=== PATIENT | male | born 1990 | race Caucasian/White ===

== ENCOUNTER 2016-06-04 18:49 | Emergency (ER) | payer OTHER ==
[2016-06-04] MEDS ORDERED: ACETAMINOPH W/CODEINE #3 TAB UD As Ordered ONE (20:08)
[2016-06-04] MEDS ORDERED: METHOCARBAMOL 500 MG TAB As Ordered ONE (20:08)
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
--- NOTE | 2016-06-04 21:10 | REPUSA ---
CLINICAL HISTORY: Neck pain. Trauma. TECHNIQUE: Multiple axial images were obtained through the cervical spine. Images were also reconstru cted in coronal and sagittal planes. The study was performed without IV contrast. COMMENTS: There is no fracture or spondylolisthesis visualized. The paraspinal soft tissues are unremarkable. T here are no lytic or blastic lesions. Straightening of cervical lordosis is seen, suggesting muscular spasm. There is evidence of minimal m ultilevel disk disease, demonstrated by minimal osteophytosis and endplate sclerosis. No significant disk herniation is noted at any level. Canal and foramina remain patent. IMPRESSION: 1. No fracture or spondylolisthesis. 2. Straightening of cervical lordosis is seen, suggesting muscular spasm. 3. Minimal multilevel spondylosis. Thank you for your kind referral of this patient.
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
--- NOTE | 2016-06-04 21:51 | EDDOCDS ---
Physician Documentation [facility] Name: Leroy Rey Age: 25 yrs Sex: Male : 1990 Arrival Date: 06/04/2016 Time: 18:49 Bed PD Private MD: Disposition: 06/04/16 21:35 Discharged to Home/Self Care. Impression: Unspecified injury of head, Cervicalgia, Low back pain, Contusion of knee - BILATERAL. - Condition is Stable. - Discharge Instructions: Back Pain, Adult, Contusion, Head Injury, Adult, Cervical Sprain. - Prescriptions for Tylenol- Codeine #3 300-30 mg Oral Tablet - take 2 tablets by ORAL route every 6 hours As needed MDD: 4 tabs; 20 tablet. Robaxin- 750 750 mg Oral Tablet - take 1 tablet by ORAL route every 6 hours As needed; 40 tablet. Ibuprofen 400 mg Oral Tablet - take 1 tablet by ORAL route every 6 hours As needed take with food; 30 tablet. - Medication Reconciliation, Local Pharmacy Hours, Work Release Form - 2 day form. - Follow up: Private Physician; When: 1 - 2 days; Reason: Recheck today's complaints, Continuance of care. - Problem is new. - Symptoms have improved. - Notes: USE MEDICATIONS INSTRUCTED, FOLLOW UP WITH YOUR DOCTOR IN 2 DAYS, RETURN TO THE ER IF THE SYMPTOMS WORSEN OR BECOME CONCERNING Historical: - Allergies: no known allergies; - Home Meds: 1. none - PMHx: none; - PSHx: none; - Social history: Smoking status: Patient states was never smoker of tobacco. No barriers to communication noted, The patient speaks fluent Telugu. - Family history: Not pertinent. - : The pt / caregiver states he / she is not on anticoagulants. Home medication list is obtained from the patient. - Exposure Risk Screening:: None identified. Vital Signs: 06/04 18:50 BP 114 / 60 RA Sitting (auto/reg); Pulse 73; Resp 18; Temp 96.9; Pulse Ox 100% on R/A; bnb Weight 58.97 kg / 130.01 lbs; Height 5 ft. 5 in. (165.10 cm); Pain 8/10; 21:27 BP 129 / 62; Pulse 58; Resp 18; Temp 98.5(TE); Pulse Ox 99% on R/A; Pain 8/10; ar3 18:50 Body Mass Index 21.63 (58.97 kg, 165.10 cm) bnb MDM: 20:04 Apply Yana Collar to Patient. ordered. ck7 20:04 Acetaminophen-Codeine 300 mg-30 mg 2 tabs PO once ordered. ck7 20:04 Methocarbamol 1 grams PO once ordered. ck7 20:05 CT Head Without Contrast Ordered. EDMS 20:06 CT Spine,Cervical W/o Contrast Ordered. EDMS 20:06 Spine. Lumbosacral, Complete Ordered. EDMS 20:06 Knee, Complete Ordered. EDMS 20:16 [facility] [place] [facility] Payment Agreement was scanned into [employer] and attached to record. jp5 20:18 [facility] [place] was scanned into [employer] and attached to record. jp5 20:18 Financial registration complete. jp5 Administered Medications: 21:49 Drug: Acetaminophen-Codeine 2 tabs [acetaminophen 300 mg-codeine 30 mg tablet (2 tabs)] ttb {Note: meds dispensed home. [employer] witness. OK with PA.} Route: PO; 21:49 Drug: Methocarbamol 1 grams [methocarbamol 500 mg tablet (2 tabs)] {Note: meds ttb dispensed.} Route: PO; Signatures: Dispatcher [employer] Olya Segal,RN RN rs3 Wally Johnston, RPA-C RPA-Cck7 Stephanie Lockhart RN RN ttb Suki Wei jp5 The chart was reviewed and I authenticate all verbal orders and agree with the evaluation and treatment provided.Attachments: 20:16 [facility] [place] Payment Agreement jp5 MTDD
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
--- NOTE | 2016-06-05 08:00 | REP ---
Clinical: Lower back pain . Technique: AP, lateral, bilateral oblique, and coned-down views. Findings: Alignment and lordosis is maintained. The vertebral bodies including transverse process and spinous processes are intact and normal. There is no evidence for acute fracture / compression injury or subluxation. No evidence for spondylolysis or spondylolisthesis. No significant degenerative change is noted. Impression: Normal lumbosacral spine radiograph series. Signed by Harlan Fregoso MD 06/05/2016 07:51 A
--- NOTE | 2016-06-06 22:51 | EDDOCDS ---
Physician Documentation [facility] Name: Leroy Rey Age: 25 yrs Sex: Male : 1990 Arrival Date: 06/04/2016 Time: 18:49 Bed PD Private MD: Disposition: 06/04/16 21:35 Discharged to Home/Self Care. Impression: Unspecified injury of head, Cervicalgia, Low back pain, Contusion of knee - BILATERAL. - Condition is Stable. - Discharge Instructions: Back Pain, Adult, Contusion, Head Injury, Adult, Cervical Sprain. - Prescriptions for Tylenol- Codeine #3 300-30 mg Oral Tablet - take 2 tablets by ORAL route every 6 hours As needed MDD: 4 tabs; 20 tablet. Robaxin- 750 750 mg Oral Tablet - take 1 tablet by ORAL route every 6 hours As needed; 40 tablet. Ibuprofen 400 mg Oral Tablet - take 1 tablet by ORAL route every 6 hours As needed take with food; 30 tablet. - Medication Reconciliation, Local Pharmacy Hours, Work Release Form - 2 day form. - Follow up: Private Physician; When: 1 - 2 days; Reason: Recheck today's complaints, Continuance of care. - Problem is new. - Symptoms have improved. - Notes: USE MEDICATIONS INSTRUCTED, FOLLOW UP WITH YOUR DOCTOR IN 2 DAYS, RETURN TO THE ER IF THE SYMPTOMS WORSEN OR BECOME CONCERNING Historical: - Allergies: no known allergies; - Home Meds: 1. none - PMHx: none; - PSHx: none; - Social history: Smoking status: Patient states was never smoker of tobacco. No barriers to communication noted, The patient speaks fluent Greek. - Family history: Not pertinent. - : The pt / caregiver states he / she is not on anticoagulants. Home medication list is obtained from the patient. - Exposure Risk Screening:: None identified. Vital Signs: 06/04 18:50 BP 114 / 60 RA Sitting (auto/reg); Pulse 73; Resp 18; Temp 96.9; Pulse Ox 100% on R/A; bnb Weight 58.97 kg / 130.01 lbs; Height 5 ft. 5 in. (165.10 cm); Pain 8/10; 21:27 BP 129 / 62; Pulse 58; Resp 18; Temp 98.5(TE); Pulse Ox 99% on R/A; Pain 8/10; ar3 18:50 Body Mass Index 21.63 (58.97 kg, 165.10 cm) bnb MDM: 20:04 Apply Yana Collar to Patient. ordered. ck7 20:04 Acetaminophen-Codeine 300 mg-30 mg 2 tabs PO once ordered. ck7 20:04 Methocarbamol 1 grams PO once ordered. ck7 20:05 CT Head Without Contrast Ordered. EDMS 20:06 CT Spine,Cervical W/o Contrast Ordered. EDMS 20:06 Spine. Lumbosacral, Complete Ordered. EDMS 20:06 Knee, Complete Ordered. EDMS 20:16 [facility] Payment Agreement was scanned into [employer] and attached to record. jp5 : [facility] was scanned into [employer] and attached to record. jp5 : Financial registration complete. jp5 06/05 12:08 T-Sheet-- Draft Copy was scanned into [employer] and attached to record. gb Administered Medications: 06/04 21:49 Drug: Acetaminophen-Codeine 2 tabs [acetaminophen 300 mg-codeine 30 mg tablet (2 tabs)] ttb {Note: meds dispensed home. [employer] witness. OK with PA.} Route: PO; 21:49 Drug: Methocarbamol 1 grams [methocarbamol 500 mg tablet (2 tabs)] {Note: meds ttb dispensed.} Route: PO; Signatures: Dispatcher [employer] EDME Opal Winters, Reg Reg gb Olya Rosenthal RN RN rs3 Wally Johnston, CHERYLE-C RPA-Cck7 Stephanie Lockhart RN RN ttb Suki Wei jp5 The chart was reviewed and I authenticate all verbal orders and agree with the evaluation and treatment provided.Attachments: 20:16 [facility] Payment Agreement jp5 06/05 12:08 T-Sheet-- Draft Copy gb Chart Complete MTDD
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
--- NOTE | 2016-06-06 22:51 | EDDOCDS ---
Physician Documentation [facility] Name: Leroy Rey Age: 25 yrs Sex: Male : 1990 Arrival Date: 06/04/2016 Time: 18:49 Bed PD Private MD: Disposition: 06/04/16 21:35 Discharged to Home/Self Care. Impression: Unspecified injury of head, Cervicalgia, Low back pain, Contusion of knee - BILATERAL. - Condition is Stable. - Discharge Instructions: Back Pain, Adult, Contusion, Head Injury, Adult, Cervical Sprain. - Prescriptions for Tylenol- Codeine #3 300-30 mg Oral Tablet - take 2 tablets by ORAL route every 6 hours As needed MDD: 4 tabs; 20 tablet. Robaxin- 750 750 mg Oral Tablet - take 1 tablet by ORAL route every 6 hours As needed; 40 tablet. Ibuprofen 400 mg Oral Tablet - take 1 tablet by ORAL route every 6 hours As needed take with food; 30 tablet. - Medication Reconciliation, Local Pharmacy Hours, Work Release Form - 2 day form. - Follow up: Private Physician; When: 1 - 2 days; Reason: Recheck today's complaints, Continuance of care. - Problem is new. - Symptoms have improved. - Notes: USE MEDICATIONS INSTRUCTED, FOLLOW UP WITH YOUR DOCTOR IN 2 DAYS, RETURN TO THE ER IF THE SYMPTOMS WORSEN OR BECOME CONCERNING Historical: - Allergies: no known allergies; - Home Meds: 1. none - PMHx: none; - PSHx: none; - Social history: Smoking status: Patient states was never smoker of tobacco. No barriers to communication noted, The patient speaks fluent Serbian. - Family history: Not pertinent. - : The pt / caregiver states he / she is not on anticoagulants. Home medication list is obtained from the patient. - Exposure Risk Screening:: None identified. Vital Signs: 06/04 18:50 BP 114 / 60 RA Sitting (auto/reg); Pulse 73; Resp 18; Temp 96.9; Pulse Ox 100% on R/A; bnb Weight 58.97 kg / 130.01 lbs; Height 5 ft. 5 in. (165.10 cm); Pain 8/10; 21:27 BP 129 / 62; Pulse 58; Resp 18; Temp 98.5(TE); Pulse Ox 99% on R/A; Pain 8/10; ar3 18:50 Body Mass Index 21.63 (58.97 kg, 165.10 cm) bnb MDM: 20:04 Apply Yana Collar to Patient. ordered. ck7 20:04 Acetaminophen-Codeine 300 mg-30 mg 2 tabs PO once ordered. ck7 20:04 Methocarbamol 1 grams PO once ordered. ck7 20:05 CT Head Without Contrast Ordered. EDMS 20:06 CT Spine,Cervical W/o Contrast Ordered. EDMS 20:06 Spine. Lumbosacral, Complete Ordered. EDMS 20:06 Knee, Complete Ordered. EDMS 20:16 [facility] Payment Agreement was scanned into [employer] and attached to record. jp5 : [facility] was scanned into [employer] and attached to record. jp5 : Financial registration complete. jp5 06/05 12:08 T-Sheet-- Draft Copy was scanned into [employer] and attached to record. gb Administered Medications: 06/04 21:49 Drug: Acetaminophen-Codeine 2 tabs [acetaminophen 300 mg-codeine 30 mg tablet (2 tabs)] ttb {Note: meds dispensed home. [employer] witness. OK with PA.} Route: PO; 21:49 Drug: Methocarbamol 1 grams [methocarbamol 500 mg tablet (2 tabs)] {Note: meds ttb dispensed.} Route: PO; Signatures: Dispatcher [employer] EDWI Opal Winters, Reg Reg gb Olya Rosenthal RN RN rs3 Wally Johnston, CHERYLE-C RPA-Cck7 Stephanie Lockhart RN RN ttb Suki Wei jp5 The chart was reviewed and I authenticate all verbal orders and agree with the evaluation and treatment provided.Attachments: 20:16 [facility] Payment Agreement jp5 06/05 12:08 T-Sheet-- Draft Copy gb Chart Complete MTDD
== END 2016-06-04 21:50 | disposition home or self-care (01) ==
LOC: M ED 18:49
DX: S80.01XA Contusion of right knee, initial encounter (principal); S80.12XA Contusion of left lower leg, initial encounter; S09.90XA Unspecified injury of head, initial encounter; M54.2 Cervicalgia; M54.5 Low back pain; V47.5XXA Car driver injured in collision with fixed or stationary object in traffic accident, initial encounter; Y92.410 Unspecified street and highway as the place of occurrence of the external cause; Y93.89 Activity, other specified; Y99.8 Other external cause status

== ENCOUNTER 2016-06-07 11:41 | Emergency (ER) | payer OTHER ==
--- NOTE | 2016-06-07 12:55 | EDDOCDS ---
Nurse's Notes [facility] Name: Leroy Rey Age: 26 yrs Sex: Male : 1990 Arrival Date: 06/07/2016 Time: 11:41 Bed Triage 3 Private MD: NO PRIMARY PHYSICIAN, . Diagnosis: Encounter for screening for infections with a predominantly sexual mode of transmission Presentation: 06/07 11:47 Presenting complaint: Patient states: that he may have and STD. Pt states that he ms18 thinks the exposed approx 2-3 weeks ago. Pt reports soreness to his penis and a little burning during urination. Pt denies penile discharge. Adult Sepsis Screening: The patient does not have new or worsening altered mentation. Patient's respiratory rate is less than 22. Systolic blood pressure is greater than 100. Patient has a qSOFA score of 0- Negative Sepsis Screen. Suicide/Homicide risk assessment- the patient denies having any suicidal and/or homicidal ideations and does not present with any other emotional, behavioral or mental health complaints. 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 Transition of care: patient was not received from another setting of care. 11:47 Acuity: BALTAZAR Level 4 ms18 11:47 Method Of Arrival: Walkin/Carried/Asstd ms18 Triage Assessment: 11:49 General: Appears in no apparent distress, comfortable, Behavior is appropriate for age, ms18 cooperative. Pain: Location: pelvis Pain currently is 2 out of 10 on a pain scale. HIV screening NA for this visit Offered previously. Neurological: No deficits noted. Respiratory: No deficits noted. : Reports burning with urination. Derm: Skin is pink, warm & dry. Historical: - Allergies: no known allergies; - Home Meds: 1. none - PMHx: none; - PSHx: none; - Social history: Smoking status: Patient states was never smoker of tobacco. No barriers to communication noted, The patient speaks fluent Serbian. - Family history: Not pertinent. - : The pt / caregiver states he / she is not on anticoagulants. Home medication list is obtained from the patient. - Exposure Risk Screening:: None identified. Screenin:53 Screening information is obtained from the patient. Fall risk: No risks identified. mlb1 Assistance ADL's: requires no assistance with activities of daily living. Abuse/DV Screen: The patient / caregiver reports he/she is: not in a situation that causes fear, pain or injury. Nutritional screening: No deficits noted. Advance Directives: Currently, there is no health care proxy. home support is adequate. Assessment: 12:52 General: Appears in no apparent distress, comfortable, Behavior is appropriate for age, mlb1 cooperative. Pain: Denies pain. Respiratory: No deficits noted. : Urine is clear. Vital Signs: 11:44 BP 123 / 66; Pulse 84; Resp 18 S; Temp 96.3(O); Pulse Ox 98% on R/A; Weight 58.97 kg gr2 (R); Height 5 ft. 5 in. (165.10 cm) (R); Pain 5/10; 11:44 Body Mass Index 21.63 (58.97 kg, 165.10 cm) gr2 Vitals: 11:44 Log In Time: June 07, 2016 at 11:44. gr2 ED Course: 11:44 Patient visited by Jennifer Nieto. gr2 11:44 NO PRIMARY PHYSICIAN, . is Private Physician. gr2 11:44 Patient moved to Waiting gr2 11:46 Patient visited by Jennifer Nieto. gr2 11:46 Patient moved to Pre RCE gr2 11:49 Triage Initiated ms18 12:08 Patient moved to Triage 3 mb9 12:26 Lis[facility] Sor[facility]-C [facility]. cc10 12:27 Dheeraj Renee MD is Attending Physician. cc10 12:28 Patient visited by Lisandro Soriano PA-C. cc10 12:28 Patient visited by Lisandro Soriano PA-C. cc10 12:37 [facility] is Referral Physician. cc10 12:52 GC & Chlamydia Amplification Sent. mlb1 12:53 The patient / caregiver is instructed regarding the plan of care and ED course. mlb1 12:53 No IV's were initiated during this patient's visit. No procedures done that require mlb1 assistance. Order Results: There are currently no results for this order. Outcome: 12:37 Discharge ordered by Provider. cc10 12:53 Discharge Assessment: Patient awake, alert and oriented x 3. No cognitive and/or mlb1 functional deficits noted. Patient verbalized understanding of disposition instructions. patient administered narcotics - no. The following High Risk Discharge criteria are identified: None. Discharged to home ambulatory. Condition: good. Discharge instructions given to patient, Instructed on discharge instructions, follow up and referral plans. Demonstrated understanding of instructions, Pt was receptive of discharge instructions/ teaching. No special radiology studies were completed. Property sent home with patient. 12:53 Patient left the ED. mlb1 Signatures: Everette Crisostomo RN RN mlb1 Jennifer Nieto gr2 Lisandro Soriano PA-C PATayoC cc10 Daniela Santo,RN RN ms18 Everette BuenoRN RN mb9 MTDD
--- NOTE | 2016-06-07 12:55 | EDDOCDS ---
Physician Documentation [facility] Name: Leroy Rey Age: 26 yrs Sex: Male : 1990 Arrival Date: 06/07/2016 Time: 11:41 Bed Triage 3 Private MD: NO PRIMARY PHYSICIAN, . Disposition: 06/07/16 12:37 Discharged to Home/Self Care. Impression: Encounter for screening for infections with a predominantly sexual mode of transmission. - Condition is Stable. - Discharge Instructions: Sexually Transmitted Disease. - Medication Reconciliation form. - Follow up: Emergency Department; When: As needed. Follow up: [facility]; When: Call to arrange an appointment; Reason: Further diagnostic work-up. - Problem is an ongoing problem. - Symptoms are unchanged. Historical: - Allergies: no known allergies; - Home Meds: 1. none - PMHx: none; - PSHx: none; - Social history: Smoking status: Patient states was never smoker of tobacco. No barriers to communication noted, The patient speaks fluent Belarusian. - Family history: Not pertinent. - : The pt / caregiver states he / she is not on anticoagulants. Home medication list is obtained from the patient. - Exposure Risk Screening:: None identified. Vital Signs: 06/07 11:44 BP 123 / 66; Pulse 84; Resp 18 S; Temp 96.3(O); Pulse Ox 98% on R/A; Weight 58.97 kg / gr2 130.01 lbs (R); Height 5 ft. 5 in. (165.10 cm) (R); Pain 5/10; 11:44 Body Mass Index 21.63 (58.97 kg, 165.10 cm) gr2 MDM: 12:37 GC & Chlamydia Amplification Ordered. EDMS 12:45 Financial registration complete. mm15 Signatures: Dispatcher [employer] EDMS Everette Crisostomo RN RN mlb1 Amari Rogers mm15 Lisandro Soriano PA-C PA-C cc10 Daniela SantoRN RN ms18 MTDD
--- NOTE | 2016-06-09 13:55 | EDDOCDS ---
Physician Documentation [facility] Name: Leroy Rey Age: 26 yrs Sex: Male : 1990 Arrival Date: 06/07/2016 Time: 11:41 Bed Triage 3 Private MD: NO PRIMARY PHYSICIAN, . Disposition: 06/07/16 12:37 Discharged to Home/Self Care. Impression: Encounter for screening for infections with a predominantly sexual mode of transmission. - Condition is Stable. - Discharge Instructions: Sexually Transmitted Disease. - Medication Reconciliation form. - Follow up: Emergency Department; When: As needed. Follow up: [facility]; When: Call to arrange an appointment; Reason: Further diagnostic work-up. - Problem is an ongoing problem. - Symptoms are unchanged. Historical: - Allergies: no known allergies; - Home Meds: 1. none - PMHx: none; - PSHx: none; - Social history: Smoking status: Patient states was never smoker of tobacco. No barriers to communication noted, The patient speaks fluent Slovak. - Family history: Not pertinent. - : The pt / caregiver states he / she is not on anticoagulants. Home medication list is obtained from the patient. - Exposure Risk Screening:: None identified. Vital Signs: 06/07 11:44 BP 123 / 66; Pulse 84; Resp 18 S; Temp 96.3(O); Pulse Ox 98% on R/A; Weight 58.97 kg / gr2 130.01 lbs (R); Height 5 ft. 5 in. (165.10 cm) (R); Pain 5/10; 11:44 Body Mass Index 21.63 (58.97 kg, 165.10 cm) gr2 MDM: 12:37 GC & Chlamydia Amplification Ordered. EDMS 12:45 Financial registration complete. mm15 12:58 [facility] Payment Agreement was scanned into [employer] and attached to record. mm15 14:23 T-Sheet-- Draft Copy was scanned into [employer] and attached to record. pauliner Signatures: Dispatcher [employer] EDNH Everette Crisostomo RN RN mlb1 Amari Rogers mm15 Lisandro Soriano PATayoC PA-C cc10 Daniela Santo RN RN ms18 Chelsea Wise The chart was reviewed and I authenticate all verbal orders and agree with the evaluation and treatment provided.Attachments: 12:58 [facility] Payment Agreement mm15 14:23 T-Sheet-- Draft Copy klr Chart Complete MTDD
--- NOTE | 2016-06-09 13:55 | EDDOCDS ---
Physician Documentation [facility] Name: Leroy Rey Age: 26 yrs Sex: Male : 1990 Arrival Date: 06/07/2016 Time: 11:41 Bed Triage 3 Private MD: NO PRIMARY PHYSICIAN, . Disposition: 06/07/16 12:37 Discharged to Home/Self Care. Impression: Encounter for screening for infections with a predominantly sexual mode of transmission. - Condition is Stable. - Discharge Instructions: Sexually Transmitted Disease. - Medication Reconciliation form. - Follow up: Emergency Department; When: As needed. Follow up: [facility]; When: Call to arrange an appointment; Reason: Further diagnostic work-up. - Problem is an ongoing problem. - Symptoms are unchanged. Historical: - Allergies: no known allergies; - Home Meds: 1. none - PMHx: none; - PSHx: none; - Social history: Smoking status: Patient states was never smoker of tobacco. No barriers to communication noted, The patient speaks fluent Kazakh. - Family history: Not pertinent. - : The pt / caregiver states he / she is not on anticoagulants. Home medication list is obtained from the patient. - Exposure Risk Screening:: None identified. Vital Signs: 06/07 11:44 BP 123 / 66; Pulse 84; Resp 18 S; Temp 96.3(O); Pulse Ox 98% on R/A; Weight 58.97 kg / gr2 130.01 lbs (R); Height 5 ft. 5 in. (165.10 cm) (R); Pain 5/10; 11:44 Body Mass Index 21.63 (58.97 kg, 165.10 cm) gr2 MDM: 12:37 GC & Chlamydia Amplification Ordered. EDMS 12:45 Financial registration complete. mm15 12:58 [facility] Payment Agreement was scanned into [employer] and attached to record. mm15 14:23 T-Sheet-- Draft Copy was scanned into [employer] and attached to record. pauliner Signatures: Dispatcher [employer] EDPR Everette Crisostomo RN RN mlb1 Amari Rogers mm15 Lisandro Soriano PATayoC PA-C cc10 Daniela Santo RN RN ms18 Chelsea Wise The chart was reviewed and I authenticate all verbal orders and agree with the evaluation and treatment provided.Attachments: 12:58 [facility] Payment Agreement mm15 14:23 T-Sheet-- Draft Copy klr Chart Complete MTDD
--- NOTE | 2016-06-09 13:55 | EDDOCDS ---
Nurse's Notes [facility] Name: Leroy Rey Age: 26 yrs Sex: Male : 1990 Arrival Date: 06/07/2016 Time: 11:41 Bed Triage 3 Private MD: NO PRIMARY PHYSICIAN, . Diagnosis: Encounter for screening for infections with a predominantly sexual mode of transmission Presentation: 06/07 11:47 Presenting complaint: Patient states: that he may have and STD. Pt states that he ms18 thinks the exposed approx 2-3 weeks ago. Pt reports soreness to his penis and a little burning during urination. Pt denies penile discharge. Adult Sepsis Screening: The patient does not have new or worsening altered mentation. Patient's respiratory rate is less than 22. Systolic blood pressure is greater than 100. Patient has a qSOFA score of 0- Negative Sepsis Screen. Suicide/Homicide risk assessment- the patient denies having any suicidal and/or homicidal ideations and does not present with any other emotional, behavioral or mental health complaints. Status: Patient is not a environmental services coordinator or dependent. Transition of care: patient was not received from another setting of care. 11:47 Acuity: BALTAZAR Level 4 ms18 11:47 Method Of Arrival: Walkin/Carried/Asstd ms18 Triage Assessment: 11:49 General: Appears in no apparent distress, comfortable, Behavior is appropriate for age, ms18 cooperative. Pain: Location: pelvis Pain currently is 2 out of 10 on a pain scale. HIV screening NA for this visit Offered previously. Neurological: No deficits noted. Respiratory: No deficits noted. : Reports burning with urination. Derm: Skin is pink, warm & dry. Historical: - Allergies: no known allergies; - Home Meds: 1. none - PMHx: none; - PSHx: none; - Social history: Smoking status: Patient states was never smoker of tobacco. No barriers to communication noted, The patient speaks fluent Turkish. - Family history: Not pertinent. - : The pt / caregiver states he / she is not on anticoagulants. Home medication list is obtained from the patient. - Exposure Risk Screening:: None identified. Screenin:53 Screening information is obtained from the patient. Fall risk: No risks identified. mlb1 Assistance ADL's: requires no assistance with activities of daily living. Abuse/DV Screen: The patient / caregiver reports he/she is: not in a situation that causes fear, pain or injury. Nutritional screening: No deficits noted. Advance Directives: Currently, there is no health care proxy. home support is adequate. Assessment: 12:52 General: Appears in no apparent distress, comfortable, Behavior is appropriate for age, mlb1 cooperative. Pain: Denies pain. Respiratory: No deficits noted. : Urine is clear. Vital Signs: 11:44 BP 123 / 66; Pulse 84; Resp 18 S; Temp 96.3(O); Pulse Ox 98% on R/A; Weight 58.97 kg gr2 (R); Height 5 ft. 5 in. (165.10 cm) (R); Pain 5/10; 11:44 Body Mass Index 21.63 (58.97 kg, 165.10 cm) gr2 Vitals: 11:44 Log In Time: June 07, 2016 at 11:44. gr2 ED Course: 11:44 Patient visited by Jennifer Nieto. gr2 11:44 NO PRIMARY PHYSICIAN, . is Private Physician. gr2 11:44 Patient moved to Waiting gr2 11:46 Patient visited by Jennifer Nieto. gr2 11:46 Patient moved to Pre RCE gr2 11:49 Triage Initiated ms18 12:08 Patient moved to Triage 3 mb9 12:26 Lisandro Soriano PA-C is PHCP. cc10 12:27 Dheeraj Renee MD is Attending Physician. cc10 12:28 Patient visited by Lisandro Soriano PA-C. cc10 12:28 Patient visited by Lisandro Soriano PA-C. cc10 12:37 [facility] is Referral Physician. cc10 12:52 GC & Chlamydia Amplification Sent. mlb1 12:53 The patient / caregiver is instructed regarding the plan of care and ED course. mlb1 12:53 No IV's were initiated during this patient's visit. No procedures done that require mlb1 assistance. 12:58 [facility] [place] Agreement was scanned into [employer] and attached to record. mm15 14:23 T-Sheet-- Draft Copy was scanned into [employer] and attached to record. klr Order Results: Lab Order: GC & Chlamydia Amplification; SPEC'M 06/07/16 12:49 Test: CHLAMYDIA DNA AMPLIFICATION; Value: NEGATIVE; Range: NEGATIVE; Status: F Test: GC DNA AMPLIFICATION; Value: NEGATIVE; Range: NEGATIVE; Status: F Outcome: 12:37 Discharge ordered by Provider. cc10 12:53 Discharge Assessment: Patient awake, alert and oriented x 3. No cognitive and/or mlb1 functional deficits noted. Patient verbalized understanding of disposition instructions. patient administered narcotics - no. The following High Risk Discharge criteria are identified: None. Discharged to home ambulatory. Condition: good. Discharge instructions given to patient, Instructed on discharge instructions, follow up and referral plans. Demonstrated understanding of instructions, Pt was receptive of discharge instructions/ teaching. No special radiology studies were completed. Property sent home with patient. 12:53 Patient left the ED. mlb1 Signatures: Everette Crisostomo RN RN mlb1 Jennifer Nieto gr2 Amari Rogers mm15 Lisandro Soriano, PA-C PA-C cc10 Daniela Santo RN RN ms18 Everette Bueno RN RN mb9 Chelsea Wise Chart [facility]
== END 2016-06-07 12:53 | disposition home or self-care (01) ==
LOC: M ED 11:41
DX: Z11.3 Encounter for screening for infections with a predominantly sexual mode of transmission (principal)